=== PATIENT | male | born 1950 | race African-American/Black ===

== ENCOUNTER 2017-03-28 05:08 | Inpatient (IN) | payer MEDICARE ==
--- NOTE | 2017-03-27 11:37 | HP ---
PATIENT: PURVI BIRD MEDICAL RECORD: [id number] ACCOUNT: [id number] [facility] : 54 ADMISSION DATE: 03/28/17 HISTORY AND PHYSICAL EXAMINATION PURVI Cooper (67yo, M) ID# [id number]. Date/Time03/14/2017 01:92ANHPH1952Service Dept.NPP_[facility] ClinicProviderEDWALLACE TORRES MDInsuranceMed Primary[place] Insurance # : [id number] Employer Name : RETIRED Med Secondary: [place] Insurance # : [id number] Employer Name : RETIRED Prescription: CMX - Member is eligible. Prescription: [facility] - Member is eligible. Chief Complaint Lung cancer Patient's Care Team Primary Care Provider: NINA KERR MD: [id number] [id number], [place] [address], , Other: BANDAR NAJERA MD: [id number] , [place] [address], , Other: MELANIA MUÑOZ MD: [address] [place] [address] [address] [id number], [place] [address], , Vitals BP:170/100 sitting R arm 03/14/2017 01:45 pm 160/90 sitting L arm 03/14/2017 01:45 pmHR:88R/R 03/14/2017 01:45 pmHt:6 ft 2 in 03/14/2017 01:44 pmWt:140 lbs 03/14/2017 01:41 pmBMI:18 03/14/2017 01:44 pmAllergies Reviewed Allergies NKDAMedications Reviewed Medications bicalutamide 50 mg aobfwk00/16/17 filledCaremarkcarvedilol 25 mg orwtnh46/23/17 filledCaremarkfurosemide 80 mg nxdawn66/10/17 filledCaremarkibuprofen 800 mg jwbigd59/05/17 filledCaremarklevoFLOXacin 500 mg /20/17 filledCaremarklisinopril 20 mg gqohao29/15/17 filledCaremarkspironolactone 50 mg vibnoc74/11/17 filledCaremarkProblems Reviewed Problems Squamous cell carcinoma of lung - Onset: 03/14/2017 Adenocarcinoma of prostate - Onset: 03/14/2017 Family History Discussed Family History Mother- Malignant tumor of breastSister- Malignant tumor of stomachSocial History Discussed Social History Cardiology Smoking Status: Current every day smoker High Cholesterol: Y High blood pressure: Y Alcohol intake: Moderate Surgical History Reviewed Surgical History Past Medical History Discussed Past Medical History Cancer: Y HISTORY AND PHYSICAL [id number] PELON,PURVI Chest Pain: Y Heart Disease: Y High Blood Pressure: Y Documents for Discussion N/A Screening None recorded. HPI Dyspnea Reported by patient. Associated Symptoms: no chest pain; no palpitations; no orthopnea; no PND; no fever; no chills; no wheezing; no dietary indiscretion; no sputum production; no hemoptysis; no weight gain; no dyspepsia non-small cell carcinoma right middle lobe ROS Patient reports weight loss (60 lbs) but reports no fever, no night sweats, no significant janneth ght gain, and no exercise intolerance. He reports no dry eyes, no irritation, and no vision change. He reports no difficulty hearing and no ear pain. He reports no frequent nosebleeds and no nose/sinus problems. He reports no sore throat, no bleeding gums , no snoring, no dry mouth, no mouth ulcers, no oral abnormalities, and no teeth problems. He reports no jugular vein distension and no swollen glands. He reports no chest pain, no arm pain on exertion, no shortness of breath when walking, no shortness of b reath when lying down, no palpitations, and no known heart murmur. He reports no cough, no wheezing, no shortness of breath, and no coughing up blood. He reports no abdominal pain, no vomiting, normal appetite, no diarrhea, not vomiting blood, no nausea, a nd no constipation. He reports no incontinence, no difficulty urinating, no hematuria, and no increased frequency. He reports no muscle aches, no muscle weakness, no arthralgias/joint pain, no back pain, and no swelling in the extremities. He reports no a b normal mole, no jaundice, and no rashes. He reports no loss of consciousness, no weakness, no numbness, no seizures, no dizziness, and no headaches. He reports no depression, no sleep disturbances, feeling safe in relationship, and no alcohol abuse. He re ports no fatigue. He reports no swollen glands and no bruising. He reports no runny nose, no sinus pressure, no itching, no hives, and no frequent sneezing. ROS as noted in the HPI Physical Exam Patient is a 67-year-old male. Constitutional: General Appearance healthy-appearing and thin. Level of Distress NAD. Ambulation ambulating normally. Cardiovascular: Apical Impulse not displaced or no thrill. Heart Auscultation normal s1 and s2; no murmurs, rubs, or gallops; and RRR. Arterial Pulses no abdominal ao rta bruits, femoral bruits, or popliteal bruits and 2+ bilateral, carotid 2+ bilateral, femoral 2+ bilateral, popliteal 2+ bilateral, and dorsalis pedis 2+ bilateral. Edema no edema or varicosities. Lungs: Repiratory Effort no dyspnea. Percussion no dullness or flatness and hyperresonance . Auscultation no wheezing, rhonchi, or rales / crackles and breathing sounds normal, good air movement, and CTA except as noted. Abdomen: Bowl Sounds normal. Inspection and Palpation no tenderness, guarding, masses, or r ebound tenderness and soft and non-distended. Liver non-tender and no hepatomegaly. Spleen non-tender and no splenomegaly. Hernia none palpable. HISTORY AND PHYSICAL [id number] PELON,PURVI Musculoskeletal System: Gait And Stance normal gait and stance. Digits and Nails normal nails and no cyanosis. Neurologic: Cranial Nerves grossly intact. Reflexes DTRs 2+ bilaterally throughout. Sensation grossly intact. Lymph Nodes: Lymph Nodes no cervical LAD, supraclavicular LAD, axillary LAD, or inguinal LAD. Eyes: Lids and Conjunctivae no discharge or pallor and non-injected. Pupils PERRLA. Cornea grossly intact. EOM EOMI. Lens clear. Sclerae non-icteric. Neck: Neck no masses, enlarged lymph nodes, or carotid bruits and supple and trachea midline. Thyroid no enlargement or nodules and non-tender. Skin: Inspection and Palpation no rash, lesions, ulcers, jaundice, or abnormal nevi. Assessment / Plan non-small cell carcinoma right middle lobe Adenocarcinoma of the prostate 1. Squamous cell carcinoma of lung C34.2: Malignant neoplasm of middle lobe, bronchus or lung Discussion Notes patient has non-small cell carcinoma right middle lobe stage I He has adenocarcinoma of the prostate and scheduled for hormonal therapy external beam radiation I have discussed his lung carcinoma with him and his sister in detail as well as the alternative methods of treatment. We discussed pulmonary resection including the expected benefits and risks which include bleeding, infection, stroke, , and the imponderables. He understands all of the above and wishes to proc eed with pulmonary resection. His PET scan demonstrates the lesion and the right middle lobe without mediastinal metastasis pulmonary function studies will tolerated. Lobectomy He has no symptoms or history of heart disease Schedule right pulmonary resection OSCAR TORRES MD at 1137 CC: [id number] DICTATION DATE: 03/14/17 1310 DOCK SUPERINTENDENT: MELA 03/21/17 [address] [place] [address] [id number] [place] [address]
[2017-03-27 15:14] LABS: HEMATOCRIT 38.2 % (42.0-54.0); HEMOGLOBIN 12.3 g/dL (13.5-17.5); MCH 26.9 pg (26.0-34.0); MCHC 32.2 g/dL (31.0-37.0); MCV 83.4 fL (80.0-100.0); MEAN PLATELET VOLUME 12.4 fL (7.4-10.4); RBC 4.58 10x6/uL (4.20-6.10); WBC 3.2 10x3/uL (4.8-10.8)
[2017-03-27 15:21] LABS: APPEARANCE CLEAR (CLEAR); BILIRUBIN NEGATIVE (NEGATIVE); COLOR YELLOW (YELLOW); GLUCOSE NEGATIVE (NEGATIVE); KETONE NEGATIVE (NEGATIVE); NITRITE NEGATIVE (NEGATIVE); PROTEIN NEGATIVE (NEGATIVE); SPECIFIC GRAVITY 1.015 (1.005-1.020); UROBILINOGEN NORMAL (NORMAL)
[2017-03-27 15:31] LABS: APTT 29.9 SECONDS (22.8-39.4); INR 1.01 (0.85-1.17); PROTIME 13.2 SECONDS (11.6-15.0)
[2017-03-27 15:38] LABS: ALBUMIN 3.7 g/dL (3.4-5.0); ALKALINE PHOSPHATASE 396 U/L (46-116); ALT (SGPT) 64 U/L (10-68); BILIRUBIN - TOTAL 0.38 mg/dL (0.2-1.3); CALC OSMOLALITY 286 mosm/kg (275-300); CARBON DIOXIDE 21.3 mmol/L (21.0-32.0); CHLORIDE - SERUM 108 mmol/L (98-107); CREATININE - SERUM 0.8 mg/dL (0.6-1.3); GLUCOSE 93 mg/dL (74-106); POTASSIUM - SERUM 4.5 mmol/L (3.5-5.1); PROTEIN - SERUM 8.1 g/dL (6.4-8.2); SODIUM 141 mmol/L (136-145); UREA NITROGEN 30 mg/dL (7-18); eGFR NON AFRICAN AMERICAN > 90 mL/min (90-120)
[2017-03-28] VITALS (54 sets, daily range): BP systolic 112–140; BP diastolic 56–83; BMI 19.3; BMI 19.2
[~2017-03-28 05:08] MED LIST: ACETAMINOPHEN500 M1 PO; ALDACTONE50 MG PO; CASODEX50 MG PO; COREG12.5 MG PO; EXCEDRIN EXTRA1 TAB; FUROSEMIDE40 MG PO; IBUPROFEN200 MG PO; PEPTO-BISM525 MG/15 PO; PRINIVIL20 MG PO; TUMS X-STR300 MG PO
--- NOTE | 2017-03-28 06:00 | NUR ---
DR CROUCH HERE, VERIFIED TO GIVE THE OXYCONTIN, TYLENOL, NEURONTIN AND CELEBREX ORDERED BY MOUTH. DR CROUCH STATES TO GIVE THEM. GIVEN WITH SIP OF WATER ORDERED.
--- NOTE | 2017-03-28 10:55 | NUR ---
PT ARRIVED BY BED WITH OR TEAM. SWITCHED OVER TO ICU MONITORS. CT X2 PLACED TO 20CM SUCTION. ANTERIOR CT WITH AIR LEAK NOTED. PT ON 10L SIMPLE MASK.
--- NOTE | 2017-03-28 11:30 | NUR ---
DR. TORRES SPOKE WITH PT'S FAMILY. UPDATED THEM ON PT'S STATUS.
--- NOTE | 2017-03-28 12:30 | NUR ---
RECEIVED PT FROM ANANDA CLARK RN. WILL TAKE OVER CARE OF PT.
--- NOTE | 2017-03-28 15:07 | NUR ---
SPOKE WITH BELLO FROM DR MUÑOZ OFFICE. PATIENT HAS F/U ALREADY SCHEDULED FOR APRIL 24 AT 2:10PM
--- NOTE | 2017-03-28 16:58 | NUR ---
PT RESTING COMFORABLY AT THIS TIME. VSS. WILL START TO WEAN DOWN DOPAMINE PER MD ORDERS. BP AND HR STABLE.
--- NOTE | 2017-03-28 19:30 | NUR ---
REPORT RECEIVED AND CARE ASSUMED. INITIAL SHIFT ASSESSMENT COMPLETED. PT ALERT AND ORIENTED X 4. IS BEING CURRENTLY MONITORED PER STANDARD CVICU PROTOCOL ALL IVF AND IV LINES LABELED APPROPRIATE ALL ARE CURRENT. ALARMS VERIFIED AND SET. PT IS CURRENTLY ON DOPAMIN TO WEAN TOLERATED TO KEEP HR>60 AND SBP 90-140 PER ORDERS. PT ON IVF DOCUMENTED ON IV FLOWSHEET AND ALL CHANGES TO BE DOCUMENTED THERE. PT DOES HAVE 2 RIGHT LATERAL CHEST TUBES WITH BLOODY DRAINAGE NOTED IN EACH TUBING. THE ONE LABELED ANTERIOR DOES HAVE AIR LEAK AND DR. TORRES IS AWARE OF THIS PER REPORT OF OFFGOING RN. OUTPUTS OF EACH TO BE DOCUMENTED ON I&O FLOWSHEET. PT WITH EPIDURAL AT 7M BASAL RATE AND BOLUS 4CC Q 15 MIN AVAILABLE ALTHOUGH BOLUS DOSE HAS NOT BEEN USED AND PT DENIES PAIN. CATHETER SECURELY TAPED AND SECURED. PT NOTED TO HAVE ANOTHER SURGICAL DRESSING JUST ABOVE THE CT SITES THAT IS ALSO CDI. F/C TO CRITICORE WITH CLEAR YELLOW URINE PRESENT. BILAT SCD'S AND TEDS PRESENT AND PT IS ON AIR OVERLAY. PT GIVEN ORAL SWAB AND DEMONSTRATES ABILITY TO PERFORM OWN ORAL HYGIENE WITH MINIMAL ASSIST. NOTE POOR DENTATION AND MANY CARIES. RIGHT CVL WITH DRESSING INTACT. LEFT RADIAL VÍCTOR WITH WRIST PROTECTOR PRESENT. CVP AND A-LINE BOTH LEVELED AND ZEROED WITH GOOD WAVE FORMS. PT IS ON AIR OVERLAY MATTRESS
--- NOTE | 2017-03-28 20:00 | NUR ---
RT AT BEDSIDE HAS DONE ABG PER ORDER. 02 D/C'D FROM 1/5 L PER ABG RESULT.
--- NOTE | 2017-03-28 20:15 | NUR ---
DR. WAYNE HERE TO GET UPDATE ON PT. DISCUSSED PAIN AND ALERTNESS LEVEL WITH DR. WAYNE. NO CHANGES MADE TO EPIDURAL AT THIS TIME
--- NOTE | 2017-03-28 21:00 | NUR ---
NO VISITORS AT THIS TIME. CONTINUE TO TURN AND REPOSITION PT Q1H AND ENCOURAGING DEEP BREATHING AND COUGHING WITH EACH ENCOUNTER. PT DOING 500-750 ON IS WITH FAIR EFFORT AND WEAK COUGH NOTED. PT IS ABLE TO DO MOST OF OWN ORALL HYGIENE WITH MINIMAL ASSIST. MOUTH IS LESS DRY THAN AT FIRST OF SHIFT.
--- NOTE | 2017-03-28 23:00 | NUR ---
SHIFT REASSESSMENT COMPLETED SEE FLOWSHEET. PT ABLE TO ASSIST SOME WITH TURNING. IS EASILY AWAKEN AND CONTINUES TO DENY PAIN. CONTINUE TO WEAN DOPAMINE. NOTE PT HANDED ME A TOOTH THAT HAD BECOME DISLODGED SINCE LAST ENCOUNTER. NO ORAL BLEEDING NOTED. PT IS DOING ORAL CARE WITH SOFT SPONGES WET WITH WATER.
[2017-03-29] VITALS (63 sets, daily range): BP systolic 97–148; BP diastolic 47–82; BMI 19.9
--- NOTE | 2017-03-29 01:10 | NUR ---
RT AT BEDSIDE FOR ABG.
--- NOTE | 2017-03-29 03:00 | NUR ---
pt awake at this time no complaints. resp reg and nonlabored
--- NOTE | 2017-03-29 04:01 | NUR ---
RADIOLOGY TECHS AT BEDSIDE FOR AM CXR. PT TOLERATED WELL
--- NOTE | 2017-03-29 05:00 | NUR ---
DRESSING TO RIGHT CVL CHANGED PER HOSPITAL POLICY
--- NOTE | 2017-03-29 05:15 | NUR ---
RT AT BEDSIDE TO DO ABG'S PER ORDER
[2017-03-29 06:30] LABS: HEMATOCRIT 33.9 % (42.0-54.0); HEMOGLOBIN 10.9 g/dL (13.5-17.5); MCH 26.8 pg (26.0-34.0); MCHC 32.2 g/dL (31.0-37.0); MCV 83.3 fL (80.0-100.0); MEAN PLATELET VOLUME 12.4 fL (7.4-10.4); RBC 4.07 10x6/uL (4.20-6.10); RDW 14.9 % (11.5-14.5)
[2017-03-29 06:32] LABS: WBC 5.3 10x3/uL (4.8-10.8)
[2017-03-29 06:45] LABS: ANION GAP 14.9 mmol/L (8-16); BILIRUBIN - TOTAL 0.69 mg/dL (0.2-1.3); CALCIUM 8.6 mg/dL (8.5-10.1); CARBON DIOXIDE 22.1 mmol/L (21.0-32.0); PROTEIN - SERUM 7.1 g/dL (6.4-8.2)
[2017-03-29 06:50] LABS: CREATININE - SERUM 1.2 mg/dL (0.6-1.3)
--- NOTE | 2017-03-29 07:00 | NUR ---
REPORT RECEIVED. SHIFT ASSESSMENT COMPLETE. PT RESTING QUIETLY. DENIES PAIN. EPIDURAL INTACT. PT ON ROOM AIR. RIGHT SUBCLAVIAN IV -FLUIDS CURRENTLY RUNNING PLASMALYTE 30ML/HR, DOPAMINE 1MCG/KG/MIN, ZINACEF 11.8ML/HR. LEFT RADIAL ART LINE. PIV TO LEFT HAND. CHEST TUBE X2 AT RIGHT LATERAL CHEST. DRESSING INTACT. SEROSANGUINEOUS DRAINAGE NOTED. TEDS AND SCDS. AIROVERLAY MATTRESS.
--- NOTE | 2017-03-29 08:49 | NUR ---
PT SET UP FOR BREAKFAST. MORNING MEDICATIONS GIVEN. DR TORRES BY TO CHECK ON PATIENT.
--- NOTE | 2017-03-29 12:45 | NUR ---
PT UP IN BED. HAS HAD LUNCH. 75% CONSUMED. SISTER AT BEDSIDE. ALL QUESTIONS ANSWERED.
--- NOTE | 2017-03-29 14:26 | NUR ---
ARTEM SANDERS CALLED. PASSWORD PROVIDED. UPDATE GIVEN AND ALL QUESTIONS ANSWERED.
--- NOTE | 2017-03-29 15:14 | NUR ---
REASSESSMENT COMPLETE. PT AWAKE AND WATCHING TELEVISION AT THIS TIME. DENIES PAIN. REPOSITIONED FOR COMFORT.
--- NOTE | 2017-03-29 16:27 | NUR ---
PT SITTING UP IN BED WATCHING TELEVISION. DENIES NEEDS AT THIS TIME. WILL CONTINUE TO MONITOR
--- NOTE | 2017-03-29 19:15 | NUR ---
REPORT RECEIVED AND CARE ASSUMED. INITIAL SHIFT ASSESSEMENT COMPLETED SEE FLOWSHEET. PT SITTING UP IN BED EATING. IVF AND LINES ARE CURRENT AND DATED. CTX2 20CM SUCITON TO RIGHT LATERAL CHEST WITH AIR LEAK PERISITING IN ONE MARKED ANTERIOR. DRESSING TO CT CDI AND ONE JUST ABOVE CT CDI. EPIDURAL DRESSING INTACT BASAL RATE 6ML/HR WTH BOLUS DOSE AVAILABLE BUT NOT BEING REQUIRED FOR PAIN MANAGEMENT. PT BEING MONITORED PER STANDARD CVICU PROTOCOL WITH ALL ALARMS VERIFIED AND SET.
--- NOTE | 2017-03-29 20:30 | NUR ---
PT MOVED TO 6. PAOLO, SISTER NOTIFIED
--- NOTE | 2017-03-29 21:00 | NUR ---
PT WATCHING TELEVISION. NO VISITORS AT THIS TIME.
--- NOTE | 2017-03-29 23:00 | NUR ---
SHIFT REASSESSMENT COMPLETED SEE FLOWSHEET. RT AT BEDSIDE DOING IS WITH PT. PT HAS BEEN SLEEPING INTERMITTENTLY THROUGHOUT THE EVENING. EASILY AWAKEN, NEURO CHECKS WNL, DENIES PAIN.
[2017-03-30] VITALS (23 sets, daily range): BP systolic 112–159; BP diastolic 57–81
--- NOTE | 2017-03-30 01:00 | NUR ---
PT IS SLEEPING WELL TONIGHT IN BETWEEN TURNING & CDB. NOTE PT DOES A WEAK COUGH WHEN COUGHING ON COMMAND BUT IS MUCH STRONGER WHEN COUGHING SPONTANEOUSLY
--- NOTE | 2017-03-30 03:00 | NUR ---
SHIFT REASSESSMENT COMPLETED SEE FLOWSHEET.
--- NOTE | 2017-03-30 03:15 | NUR ---
CO FOUNDER AND PRESIDENT AT BEDSIDE FOR AM PCXR
--- NOTE | 2017-03-30 05:00 | NUR ---
RT AT BEDSIDE FOR AM ABG'S. NO CHANGES MADE BASED ON RESULTS. CONTINUE TO TURN CDB AND DO IS WITH PT Q1H. PT ACTUALLY ABLE TO TURN SELF SIDE TO SIDE EASILY REQUIRING ASSISTANCE WITH PILLOWS FOR SUPPORT AND TO FLOAT HEELS. PT IS ON AIR OVERLAY MATTRESS. HOB ELEVATED 30. EPIDURAL WITHOUT INCIDENT THIS SHIFT CONTINUES AT BASAL RATE 6ML/HR AND NO BOLUS DOSE HAS BEEN REQUIRED THIS SHIFT. PT DENYING PAIN WITH EACH TIME ASKED.
[2017-03-30 06:26] LABS: HEMATOCRIT 29.8 % (42.0-54.0); HEMOGLOBIN 9.6 g/dL (13.5-17.5); MCH 26.7 pg (26.0-34.0); MCHC 32.2 g/dL (31.0-37.0); PLATELET COUNT 74 10x3/uL (130-400); RBC 3.59 10x6/uL (4.20-6.10); RDW 15.2 % (11.5-14.5)
[2017-03-30 06:27] LABS: WBC 3.6 10x3/uL (4.8-10.8)
[2017-03-30 06:43] LABS: PLATELET ESTIMATE DECREASED
[2017-03-30 06:45] LABS: ALBUMIN 2.6 g/dL (3.4-5.0); ANION GAP 8.5 mmol/L (8-16); BILIRUBIN - TOTAL 0.44 mg/dL (0.2-1.3); CALCIUM 8.6 mg/dL (8.5-10.1); CARBON DIOXIDE 25.2 mmol/L (21.0-32.0); CREATININE - SERUM 1.1 mg/dL (0.6-1.3); POTASSIUM - SERUM 3.7 mmol/L (3.5-5.1); PROTEIN - SERUM 6.5 g/dL (6.4-8.2)
--- NOTE | 2017-03-30 08:35 | NUR ---
POSTERIOR CHEST TUBE DC'D BY DR. TRORES. ANTERIOR CHEST TUBE REMAINS IN PLACE. PT TOLERATED WELL. VSS. REPOSITIONED IN BED. TURN COUGH AND DEEP BREATHING DONE. PULLS APPROX 750 ON EACH IS.
--- NOTE | 2017-03-30 10:20 | NUR ---
SURGERY NOTIFIED OF 2 HOURS REMAINING IN BAG. CURRENLTLY 13.6 MLS REMAINING RUNNING AT 6 MLS AN HOUR.
--- NOTE | 2017-03-30 12:16 | NUR ---
DIOGENES WODO DEDICATED REGIONAL DRIVER NOTIFIED OF EPIDURAL RESIVOUR AMOUNT.
--- NOTE | 2017-03-30 12:25 | NUR ---
DR. MABRY AT BEDSIDE CHANGING EPIDURAL BAG.
--- NOTE | 2017-03-30 19:30 | NUR ---
RECEIVED CARE OF PT, ASSESSMENT PER FLOWSHEET. PT ALERT AND ORIENTED X 4, ON RA, HR SR WITH OCC PVC'S NOTED ON CM, RT LAT CT TO WATERSEAL, NO AIR LEAK NOTED, DRESSING CDI, SEROSANG DRAIANGE NOTED, CRITICORE LAM PATENT WITH RAMIREZ URINE IN TUBING, LT RADIAL A-LINE FLUSHED AND ZEROED-GOOD WAVEFORM NOTED ON CM. PPP, PULLING AROUND 750 ON IS WITH GOOD INSP EFFORT-WILL CONT TO ENCOURAGE.
--- NOTE | 2017-03-30 21:05 | NUR ---
PT FAMILY IN FOR VISITATION, PT CONVERSING EASILY IN NO APPARENT DISTRESS, VSS.
--- NOTE | 2017-03-30 23:15 | NUR ---
REASSESSMENT PER FLOWSHEET, NO ACUTE CHANGES NOTED AT THIS TIME, PT ASSISTED TO COMFORTABLE POSITION, DENIES ANY OTHER NEEDS.
[2017-03-31] VITALS (22 sets, daily range): BP systolic 130–170; BP diastolic 70–92
--- NOTE | 2017-03-31 01:50 | NUR ---
PT RESTING IN BED WITH EYES CLOSED, BREATHING SHALLOW BUT UNLABORED, VSS, SR ON CM, CONT POC.
--- NOTE | 2017-03-31 03:00 | NUR ---
REASSESSMENT PER FLOWSHEET, NO ACUTE CHANGES NOTED AT THIS TIME. HR SR WITH OCC PVC'S AT A RATE OF 68, EPIDURAL PREPARED FOODS ASSOCIATE AND CALL BUTTON IN REACH, BED LOW.
--- NOTE | 2017-03-31 05:20 | NUR ---
PT POSITIONED FOR COMFORT, PULLING 750-800 ON IS WITH GOOD INSPIRATORY EFFORT, WILL CONT TO ENCOURAGE, NO VISITORS PRESENT AT THIS TIME.
[2017-03-31 06:21] LABS: HEMATOCRIT 28.8 % (42.0-54.0); HEMOGLOBIN 9.3 g/dL (13.5-17.5); MCH 26.5 pg (26.0-34.0); MCHC 32.3 g/dL (31.0-37.0); MCV 82.1 fL (80.0-100.0); MEAN PLATELET VOLUME 12.5 fL (7.4-10.4); RBC 3.51 10x6/uL (4.20-6.10)
[2017-03-31 06:22] LABS: WBC 2.5 10x3/uL (4.8-10.8)
[2017-03-31 06:43] LABS: ALBUMIN 2.4 g/dL (3.4-5.0); ALKALINE PHOSPHATASE 319 U/L (46-116); BILIRUBIN - TOTAL 0.38 mg/dL (0.2-1.3); CALC OSMOLALITY 281 mosm/kg (275-300); CALCIUM 8.5 mg/dL (8.5-10.1); CARBON DIOXIDE 24.3 mmol/L (21.0-32.0); CHLORIDE - SERUM 106 mmol/L (98-107); CREATININE - SERUM 0.9 mg/dL (0.6-1.3); GLUCOSE 105 mg/dL (74-106); POTASSIUM - SERUM 3.5 mmol/L (3.5-5.1); PROTEIN - SERUM 6.4 g/dL (6.4-8.2); SODIUM 140 mmol/L (136-145); UREA NITROGEN 21 mg/dL (7-18); eGFR NON AFRICAN AMERICAN 90 mL/min (90-120)
[2017-03-31 06:44] LABS: ALT (SGPT) 83 U/L (10-68)
--- NOTE | 2017-03-31 11:44 | OP ---
PATIENT NAME: PURVI BIRD MEDICAL RECORD: [id number] :52 LOCATION:[facility] D.CV06 ADMISSION DATE:03/28/17 SURGEON: DANIEL HILLIARD MD DATE OF OPERATION: 03/28/2017 SURGEON: Daniel Hilliard MD ANESTHESIA: General endotracheal, Dr. Jha. OPERATION PERFORMED: 1. Right middle lobe resection. 2. Right mediastinal lymphadenectomy. 3. Flexible fiberoptic bronchoscopy. PREOPERATIVE DIAGNOSIS: Non-small cell carcinoma, right middle lobe. POSTOPERATIVE DIAGNOSIS: Non-small cell carcinoma, right middle lobe. INDICATION FOR OPERATION: Carcinoma of the right middle lobe. FINDINGS AT OPERATION: Carcinoma of the right middle lobe. There were no endobronchial lesions noted. ESTIMATED BLOOD LOSS: Less than 50 mL. DESCRIPTION OF PROCEDURE: After informed consent, adequate preoperative medication evaluation, the patient was brought to the operating room, placed on the table in the supine position. After induction of general endotracheal anesthesia and application of appropriate monitoring devices, the patient underwent flexible fiberoptic bronchoscopy and placement of a double lumen tube. The patient was then turned in a left lateral decubitus position. The right chest prepped and draped in a sterile field, utilizing Betadine scrub, alcohol, and Betadine solution. A Betadine-impregnated drape was also used. A small posterolateral thoracotomy incision was made and dissection carried down to the fascia. Hemostasis maintained with electrocautery. The fifth interspace was identified and opened. The chest was examined. The above findings were noted. The lower fissure was complete; however, the minor fissure was incomplete. Dissection was started at the hilum and an incision made in the pleura. The vein to the middle lobe was from the lower right pulmonary vein. This was dissected at the hilum. Attention was then turned towards the major fissure. The pleura was incised and the artery identified. The artery was dissected proximally and distally. The bronchus was also identified. The pulmonary vein was then divided with an Endo-INDY stapler and further dissection carried out around the pulmonary artery. Two branches of the pulmonary artery were also divided utilizing an Endo-INDY stapler. Attention was then turned towards the bronchus. The bronchus was identified and an endobronchial loaded stapler was placed and the lung tested. There was good ventilation to the upper and lower lobes. The bronchus was divided. The anterior fissure was then completed with an Endo-INDY stapler. This was sent to pathology. The patient then underwent a lymph node dissection. There was a large level 7 node that was resected. There were 2 level 10 nodes that were with the lung specimen. A separate level 4 node was also taken. There were no nodes at level 8-9. The chest was irrigated with copious amounts of antibiotic solution and normal saline. Two #32 chest tubes were placed, one anteriorly and OPERATIVE REPORT [id number] PELON,PURVI superiorly, one posteriorly and inferiorly. Chest was again irrigated. Instrument count and sponge count were correct times 2. Chest was closed in layers utilizing #2 Vicryl pericostal sutures, #1 Vicryl on the muscle, 2-0 Vicryl on the subcutaneous tissue and skin approximated with 3-0 subcuticular Vicryl. Sterile dressings were applied. The patient tolerated the procedure well and turned in a supine position. The endotracheal tube was exchanged for a single lumen tube. The patient underwent flexible fiberoptic bronchoscopy demonstrating good closure of the middle lobe and no other endobronchial clots or plugs. The patient was then extubated and transferred to the CV ICU in satisfactory condition. TRANSINT:[id number] Voice Confirmation ID: [id number] DOCUMENT ID: [id number] DANIEL HILLIARD MD at 1144 CC: [id number] DICTATION DATE: 03/28/17 1053 IDENTIFIER HORSE: 03/28/17 1118 [address] [place] [id number] [place] [id number]
--- NOTE | 2017-03-31 13:30 | NUR ---
L RADIAL ARTERIAL LINE DC'D. GENARO DIAZ'Foreign.
--- NOTE | 2017-03-31 19:20 | NUR ---
RESUMED CARE OF PT, ASSESSMENT PER FLOWSHEET. PT SITTING UP IN BED IN NO APPARENT DISTRESS, HR SR WITH PVC'S ON CM AT RATE OF 62, RHONCHI AUSCULTATED IN RUL WITH DIM BASES BILAT, PPP, SKIN ASSESSMENT PER FLOWSHEET, VSS, PULLING AROUND 750 ON IS, WEAK COUGH NOTED-WILL ENCOURAGE, PT DENIES ANY NEEDS AT THIS TIME, AIR OVERLAY IN PLACE, WILL MONITOR.
--- NOTE | 2017-03-31 21:30 | NUR ---
NO VISITORS PRESENT AT THIS TIME, PT PULLING AROUND 850 ON IS WITH GOOD INSPIRATORY EFFORT, WEAK COUGH NOTED, WILL CONT TO ENCOURAGE, HR SR WITH OCC PVC'S ON CM, BED LOW, CALL LIGHT IN REACH, COFFEE PROVIDED PER REQUEST.
--- NOTE | 2017-03-31 23:00 | NUR ---
REASSESSMENT PER FLOWSHEET, NO ACUTE CHANGES NOTED AT THIS TIME, HR REMAINS SR WITH OCC PVC'S, VSS, CONT POC.
[2017-04-01] VITALS (24 sets, daily range): BP systolic 110–143; BP diastolic 70–91
--- NOTE | 2017-04-01 00:11 | NUR ---
EMPTIED 515 CC OF RAMIREZ URINE FROM URINAL, PRN PO NORCO 10/325 MG ADMINISTERED PER PT REQUEST FOR INCISIONAL DISCOMFORT. WILL MONITOR FOR DESIRED EFFECT.
--- NOTE | 2017-04-01 01:00 | NUR ---
PT RESTING IN BED WITH EYES CLOSED, AROUSES EASILY TO VOICE, DENIES PAIN OR ANY NEEDS AT THIS TIME, POSITIONED WITH MINIMAL ASSISTANCE, BED LOW, CALL LIGHT IN REACH.
--- NOTE | 2017-04-01 04:15 | NUR ---
COMPLETE BATH AND LINEN CHANGE DONE, PT TOLERATED WITHOUT DIFFICULTY.
--- NOTE | 2017-04-01 04:40 | NUR ---
PT C/O INCISIONAL PAIN 5/10 ON PAIN SCALE, PRN PO NORCO 10/325 MG ADMINISTERED PER MD ORDER AND PT REQUEST.
--- NOTE | 2017-04-01 05:21 | NUR ---
PT RESTING QUIETLY IN BED, HR SR WITH OCC PVC'S ON CM, VSS, CONT POC.
[2017-04-01 06:21] LABS: HEMATOCRIT 29.1 % (42.0-54.0); HEMOGLOBIN 9.5 g/dL (13.5-17.5); MCH 26.5 pg (26.0-34.0); MCHC 32.6 g/dL (31.0-37.0); MCV 81.3 fL (80.0-100.0); MEAN PLATELET VOLUME 12.3 fL (7.4-10.4); RBC 3.58 10x6/uL (4.20-6.10); RDW 14.6 % (11.5-14.5); WBC 2.4 10x3/uL (4.8-10.8)
[2017-04-01 06:42] LABS: ALBUMIN 2.7 g/dL (3.4-5.0); ALKALINE PHOSPHATASE 300 U/L (46-116); ALT (SGPT) 63 U/L (10-68); CALC OSMOLALITY 278 mosm/kg (275-300); CALCIUM 9.1 mg/dL (8.5-10.1); CARBON DIOXIDE 27.2 mmol/L (21.0-32.0); CHLORIDE - SERUM 102 mmol/L (98-107); GLUCOSE 104 mg/dL (74-106); POTASSIUM - SERUM 3.3 mmol/L (3.5-5.1); PROTEIN - SERUM 6.5 g/dL (6.4-8.2); SODIUM 138 mmol/L (136-145); UREA NITROGEN 22 mg/dL (7-18); eGFR NON AFRICAN AMERICAN 80 mL/min (90-120)
--- NOTE | 2017-04-01 14:35 | NUR ---
CONSULT CALLED TO DR. BARROW. NEW ORDERS REC'D.
--- NOTE | 2017-04-01 19:20 | NUR ---
RESUMED CARE OF PT, ASSESSMENT PER FLOWSHEET. PT SITTING UP IN NO APPARENT DISTRESS, BREATH SOUNDS DIM IN BILAT BASES, HR SR WITH PVC'S ON CM AT A RATE OF 69, PPP, RT LAT CHEST DRESSINGS NOTED X 2, BOTH CDI, PULLING AROUND 750-800 ON IS WITH GOOD INSPIRATORY EFFORT, RTSC SL'D, DRESSING CDI. ICE WATER PROVIDED PER REQUEST, PT DENIES ANY NEEDS, CALL LIGHT IN REACH.
--- NOTE | 2017-04-01 20:53 | NUR ---
NO VISITORS PRESENT AT THIS TIME, HS CORDARONE 200MG ADMINISTERED PER ORDER, PT REPOSITIONED SELF IN BED WITH MINIMAL ASSISTANCE, GOOD COUGH NOTED, PULLING AROUND 750 ON IS. WILL CONT TO ENCOURAGE.
--- NOTE | 2017-04-01 23:10 | NUR ---
REASSESSMENT PER FLOWSHEET, NO ACUTE CHANGES NOTED. HR REMAINS SR WITH PVC'S ON MONITOR, VSS, CONT POC.
[2017-04-02] VITALS (16 sets, daily range): BP systolic 104–155; BP diastolic 66–836
--- NOTE | 2017-04-02 01:50 | NUR ---
PT RESTING SITTING UP IN CHAIR, CALL LIGHT IN REACH, DENIES ANY NEEDS AT THIS TIME.
--- NOTE | 2017-04-02 04:18 | NUR ---
PRN PO NORCO 10/325 ADMINSTERED FOR INCISIONAL DISCOMFORT 4/10 ON PAIN SCALE, WILL MONITOR FOR DESIRED EFFECT.
--- NOTE | 2017-04-02 05:38 | NUR ---
NO VISITORS PRESENT AT THIS TIME, PT RESTING IN BED WITH EYES CLOSED, VSS, CONT POC.
[2017-04-02 06:23] LABS: HEMATOCRIT 28.4 % (42.0-54.0); HEMOGLOBIN 9.2 g/dL (13.5-17.5); MCH 26.5 pg (26.0-34.0); MCHC 32.4 g/dL (31.0-37.0); MCV 81.8 fL (80.0-100.0); MEAN PLATELET VOLUME 12.5 fL (7.4-10.4); RBC 3.47 10x6/uL (4.20-6.10); RDW 14.7 % (11.5-14.5); WBC 2.1 10x3/uL (4.8-10.8)
[2017-04-02 06:35] LABS: ALBUMIN 2.5 g/dL (3.4-5.0); ALKALINE PHOSPHATASE 302 U/L (46-116); ALT (SGPT) 55 U/L (10-68); BILIRUBIN - TOTAL 0.51 mg/dL (0.2-1.3); CALC OSMOLALITY 278 mosm/kg (275-300); CARBON DIOXIDE 28.1 mmol/L (21.0-32.0); CHLORIDE - SERUM 102 mmol/L (98-107); CREATININE - SERUM 0.9 mg/dL (0.6-1.3); GLUCOSE 105 mg/dL (74-106); POTASSIUM - SERUM 3.5 mmol/L (3.5-5.1); PROTEIN - SERUM 6.5 g/dL (6.4-8.2); SODIUM 138 mmol/L (136-145); UREA NITROGEN 22 mg/dL (7-18); eGFR NON AFRICAN AMERICAN 90 mL/min (90-120)
--- NOTE | 2017-04-02 07:44 | NUR ---
SHIFT ASSESSMENT COMPLETE. PATIENT DENIES ANY NEEDS AT THIS TIME. CALL LIGHT WITHIN REACH, BED IN LOW POSITION.
--- NOTE | 2017-04-02 08:30 | NUR ---
NEW ORDERS RECEIVED FROM DR. TORRES.
--- NOTE | 2017-04-02 09:00 | NUR ---
PATIENT IS WATCHING TV AT THIS TIME. DENIES ANY NEEDS OR PAIN.
--- NOTE | 2017-04-02 10:50 | NUR ---
PATIENT UP TO CHIAR WITHOUT ASSIST NEEDED. PATIENT VOIDED 250 ML CLEAR YELLOW URINE. PATIENT ENCOURAGED TO COUGH AND DEEP BREATH, WITH [id number] ON INCENTIVE SPIROMETRY REACHED.
--- NOTE | 2017-04-02 11:12 | NUR ---
NUTRITION F/U CHART REVIEWED. PT VISIT. PT REPORTS HE IS "EATING OK" REG DIET. WILL PROVIDE REG DIET, ORDER ENSURE WITH MEALS. RD FOLLOWING
--- NOTE | 2017-04-02 11:17 | NUR ---
* Is the patient Alert and Oriented? Yes 0 * How many steps to enter\exit or inside your home? Elevator 0 * PCP Dr. Mariano 0 * Pharmacy [facility] on [address] 0 * Preadmission Environment Home Alone 0 * ADLs Independent 0 * Equipment Rolling Walker 0 * List name and contact numbers for known caregivers / representatives who currently or will assist patient after discharge: Sister - Janae Coello [phone] 0 * Additional services required to return to the preadmission environment? Yes 0 * Can the patient safely return to the preadmission environment? Yes 0 * Has this patient been hospitalized within the prior 30 days at any hospital? No Patient Name: PURVI BIRD Admission Status: Elective Accout number: [id number] Admission Date: 03-28-2017 : 1950 Admission Diagnosis:MALIGNANT NEOPLASM OF MIDDLE LOBE, BRONCHUS OR LUNG Attending: OSCAR TORRES Current LOS: 5 Anticipated DC Date: 04-03-2017 Planned Disposition: Primary Insurance: MEDICARE A & B Discharge Planning Comments: CM met with patient to assess dc plans/needs. Patient states he lives alone at the [facility]. He reports he is independent with all ADL's & IADL's, but does use a walker PRN. He states he has had home health services in the past but not currently receiving in home services. At dc, he plans to return home. He states his sister, Janae, will help as needed. He is agreeable to home health services at discharge. [place] signed for [facility]. DC IMM explained & signed by patient. CM will follow & assist as needed. Cargo Service Agent: Tracey Ferreira
--- NOTE | 2017-04-02 14:27 | NUR ---
PATIENT IS SITTING UP IN [facility], NO DISTRESS NOTED. PATIENT DENIES ANY NEEDS AT THIS TIME.
[2017-04-02] MEDS ORDERED: CORDARONE200 MG PO (15:09)
[2017-04-02] MEDS ORDERED: HYDROCODONE-APA1 TAB PO (15:11)
--- NOTE | 2017-04-02 16:02 | NUR ---
DC order rec'd. referral faxed and called to Cristy with [facility].
--- NOTE | 2017-04-02 16:25 | NUR ---
double lumen cath dc'd with aseptic tech with patient in supine position, pressure applied and held for approx 10mins, then pressure dressing applied.
--- NOTE | 2017-04-02 16:45 | NUR ---
DISCHARGE INSTRUCTIONS EXPLAINED TO PATIENT AND SISTER. PATIENT DISCHARGED VIA W/C IN GOOD STABLE CONDITION TO POV WITH SISTER.
== END 2017-04-02 16:45 | disposition home health service (06) | DRG 163 ==
LOC: D.CVICU 05:08 → D.SDCHOLD 05:08 → D.CVICU 10:43
PROVIDERS: ADMIT Internal Medicine Cardiovascular Disease
PROC: 0BTD0ZZ Resection of Right Middle Lung Lobe, Open Approach (ICD-10-PCS; principal; 2017-03-28 07:30)
PROC: 07B70ZZ Excision of Thorax Lymphatic, Open Approach (ICD-10-PCS; 2017-03-28 07:30)
DX: C34.2 Malignant neoplasm of middle lobe, bronchus or lung (principal); E43 Unspecified severe protein-calorie malnutrition; Z68.1 Body mass index [BMI] 19.9 or less, adult; E78.00 Pure hypercholesterolemia, unspecified; I10 Essential (primary) hypertension; I25.10 Atherosclerotic heart disease of native coronary artery without angina pectoris; R63.4 Abnormal weight loss; E56.9 Vitamin deficiency, unspecified

== ENCOUNTER → 2017-04-19 09:43 | Outpatient (CLI) | payer MEDICARE ==
[2017-03-29 10:15] VITALS: BMI 19.9
[~2017-04-19 09:43] MED LIST changes: +CORDARONE200 MG PO; +HYDROCODONE-APA1 TAB PO
== END | disposition home or self-care (01) ==
LOC: D.RAD 04-18 11:45
DX: C34.2 Malignant neoplasm of middle lobe, bronchus or lung (principal)

== ENCOUNTER → 2018-08-15 09:16 | Outpatient (CLI) | payer MEDICARE ==
[2017-03-29 10:15] VITALS: BMI 19.9
== END | disposition home or self-care (01) ==
LOC: D.RAD 09:16
PROVIDERS: ATTEND Internal Medicine Cardiovascular Disease
DX: C34.2 Malignant neoplasm of middle lobe, bronchus or lung (principal)

== ENCOUNTER → 2019-08-14 09:11 | Outpatient (CLI) | payer MEDICARE, MEDICAID ==
[2017-03-29 10:15] VITALS: BMI 19.9
== END | disposition home or self-care (01) ==
LOC: D.RAD 08-07 11:15
PROVIDERS: ATTEND Internal Medicine Cardiovascular Disease
DX: C34.90 Malignant neoplasm of unspecified part of unspecified bronchus or lung (principal)